=== PATIENT | female | born 1935 | race Caucasian/White ===

== ENCOUNTER → 2019-04-25 | Outpatient (CLI) | payer MEDICARE, OTHER ==
[~2019-04-25] MED LIST: ASPI325EC PO; ASPI81CH; LEVFLO500 PO; OMEP10ER PO; PROM25 PO
== END | disposition home or self-care (01) ==
LOC: LAB 12:57 → LAB SHORT 12:57
DX: R19.7 Diarrhea, unspecified (principal)
CPT/HCPCS: 87177; 87209